=== PATIENT | female | born 1995 | race Caucasian/White ===

== ENCOUNTER 2017-11-09 09:37 | Emergency (ER) | payer OTHER ==
--- NOTE | 2017-11-09 10:06 | ED ---
Lower Extremity - HPI Summary HPI Summary: Pt. is a 22y.o female who presents emergency department for left ankle injury that occurred yesterday. Patient states she was running on a trail when she tripped over a rock and twisted her left ankle. Patient to left knee sustained as well but otherwise denies head injury. Patient states ankle pain has progressively gotten worse and she is having difficulty ambulating today and presented to the emergency department. Symptoms are mild in severity. Walking makes symptoms worse. Rest makes symptoms better. No significant past medical history. - History of Current Complaint Chief Complaint: EDExtremityLower Stated Complaint: LT ANKLE INJURY Time Seen by Provider: 11/09/17 09:54 Hx Obtained From: Patient Hx Last Menstrual Period: Apr 2015 Pain Intensity: 4 - Allergies/Home Medications Allergies/Adverse Reactions: Allergies Allergy/AdvReac Type Severity Reaction Status Date / Time codeine Allergy Nausea Verified 11/09/17 09:49 PMH/Surg Hx/FS Hx/Imm Hx Previously Healthy: Yes Psychiatric History: Denies: Hx Eating Disorder - Immunization History Date of Tetanus Vaccine: current Date of Influenza Vaccine: unknown Infectious Disease History: No Infectious Disease History: Denies: Hx Clostridium Difficile, Hx Hepatitis, Hx Human Immunodeficiency Virus (HIV), Hx of Known/Suspected MRSA, Hx Shingles, Hx Tuberculosis, Hx Known/ Suspected VRE, Hx Known/Suspected VRSA, History Other Infectious Disease, Traveled Outside the [place] in Last 30 Days - Family History Known Family History: Positive: None - Social History Occupation: Student Lives: With Family Alcohol Use: Rare Substance Use Type: Reports: None Smoking Status (MU): Never Smoked Tobacco Review of Systems Positive: Other - Left ankle injury Negative: Weakness, Paresthesia, Numbness All Other Systems Reviewed And Are Negative: Yes Physical Exam Triage Information Reviewed: Yes Vital Signs On Initial Exam: Initial Vitals Temp Pulse Resp BP Pulse Ox 98.2 F 87 16 108/58 100 11/09/17 09:46 11/09/17 09:46 11/09/17 09:46 11/09/17 09:46 11/09/17 09:46 Vital Signs Reviewed: Yes Appearance: Positive: Well-Appearing - Patient sitting in wheelchair in no acute distress. Friend present. Skin: Positive: Warm, Dry Head/Face: Positive: Normal Head/Face Inspection Eyes: Positive: Normal Neck: Positive: Supple Musculoskeletal: Positive: Other - Superficial abrasion noted to the left anterior knee. No bony tenderness to the left knee and range of motion is intact. Mild lateral malleolus pain edema noted. Achilles tendon is intact. No palpable foot pain and no pain to the base of the fifth metatarsal. Ankle appears stable. Good palpable pedal pulse. Neurological: Positive: Normal, CN Intact II-III Psychiatric: Positive: Affect/Mood Appropriate Procedures - Splinting Left Lower Extremity Hand-Made Type: orthoglass Splint: Stirrup splint Pre-Proc Neuro Vasc Exam: normal Post-Proc Neuro Vasc Exam: normal Diagnostics - Vital Signs Vital Signs Temp Pulse Resp BP Pulse Ox 11/09/17 09:46 98.2 F 87 16 108/58 100 - Laboratory Lab Statement: Any lab studies that have been ordered have been reviewed, and results considered in the medical decision making process. Lower Extremity Course/Dx - Course Course Of Treatment: Presenting for an isolated left ankle injury. Ankle x-ray showing a nondisplaced distal fibular fracture, reading per radiology. Ankle was splinted and crutches. Advised patient to call the orthopedic clinic today to schedule a follow-up appointment. To ice and elevate. Tylenol for pain as directed. Patient understands and agrees with plan. - Diagnoses Differential Diagnosis/HQI/PQRI: Positive: Fracture (Closed), Sprain, Strain Provider Diagnoses: Closed fibular fracture Discharge - Sign-Out/Discharge Documenting (check all that apply): Discharge/Admit/Transfer - Discharge Plan Condition: Good Disposition: HOME Patient Education Materials: Ankle Fracture (ED) Referrals: Rachel Moreira MD [Primary Care Provider] - Colin Hawley MD [Medical Doctor] - Additional Instructions: Call Dr. Hawley's office today to schedule an appointment Keep splint in place and use crutches Ice and elevate Tylenol for pain as directed - Billing Disposition and Condition Condition: GOOD Disposition: Home
--- NOTE | 2017-11-09 10:22 | RAD ---
INDICATION: Left ankle injury COMPARISON: None TECHNIQUE: AP, lateral, and oblique views were obtained. FINDINGS: There is nondisplaced oblique fracture of the distal fibular metadiaphysis. No other fractures are evident. The ankle mortise is intact. There is lateral soft tissue swelling. IMPRESSION: NONDISPLACED FIBULAR FRACTURE
[2017-11-09 11:27] VITALS: BP 113/70
== END 2017-11-09 11:22 | disposition home or self-care (01) ==
LOC: ED 09:37
DX: S82.402A Unspecified fracture of shaft of left fibula, initial encounter for closed fracture (principal); W18.09XA Striking against other object with subsequent fall, initial encounter; Y93.02 Activity, running; Y92.89 Other specified places as the place of occurrence of the external cause; Z88.5 Allergy status to narcotic agent
CPT/HCPCS: 29515; 99282

== ENCOUNTER 2019-08-30 13:53 | Emergency (ER) | payer OTHER ==
--- NOTE | 2019-08-30 14:30 | UC ---
Hand/Wrist HPI - HPI Summary HPI Summary: 24 y/o female presents to the urgent care c/o Left thumb pain and swelling s/p injury w/he training bike yesterday around 1200N. Pt reports her thumb got stuck in part of the bike yesterday while she was training. Pain is pain 5/10, sharp w/ movement and flexion associated w/ a bruise and mild swelling. Pt denies any numbness or tingling sensation over her left thumb or hand. Pt also c/o of Nausea and vomiting since this morning. She has had 2 episodes of vomiting. She reports she is training for a Triathlon and sometimes she experiences dehydration which starts with nausea and vomiting. She usually self treats it at home with Gatorade which she has not taken any today. She denies fever, SOB, cough, Hx of travel, [place], dizziness, chest pain, abdominal pain, diarrhea,fatigue or weakness, urinary symptoms, back pain, flank pain, myalgias or vaginal discharge. - History Of Current Complaint Stated Complaint: THUMB INJURY Time Seen by Provider: 08/30/19 14:28 Hx Obtained From: Patient Hx Last Menstrual Period: Apr 2015 ?: No Onset/Duration: Sudden Onset, Lasting Days - Yesterday around 12 N injured her left thumb w/ her training bike, Still Present Severity Initially: Moderate Severity Currently: Moderate Pain Intensity: 5 Pain Scale Used: 0-10 Numeric Character Of Pain: Sharp Aggravating Factor(s): Movement, Flexion, Pulling Alleviating Factor(s): Rest Associated Signs And Symptoms: Positive: Swelling, Bruising - at the proximal left thumb. Negative: Weakness, Numbness/Tingling Related History: Dominant Hand Right - Allergies/Home Medications Allergies/Adverse Reactions: Allergies Allergy/AdvReac Type Severity Reaction Status Date / Time codeine Allergy Nausea Verified 08/30/19 14:33 Home Medications: Home Medications Levonorgestrel (IUD) (NF) [Mirena (NF)] 1 unit VAGINAL ONCE 10/03/15 [History Confirmed 08/30/19] Ondansetron ODT TAB* [Zofran 4 MG Odt TAB*] 4 mg PO Q6H PRN #8 tab.odt 08/30/19 [Rx] PMH/Surg Hx/FS Hx/Imm Hx Previously Healthy: Yes - Pt denies PMHX - Surgical History Surgical History: None - Family History Known Family History: Positive: Diabetes - Social History Occupation: Employed Full-time Lives: With Family Alcohol Use: Rare Substance Use Type: None Smoking Status (MU): Never Smoked Tobacco - Immunization History Most Recent Influenza Vaccination: Mar 2014 Most Recent Tetanus Shot: Unsure Review of Systems All Other Systems Reviewed And Are Negative: Yes Constitutional: Positive: Negative Skin: Positive: Bruising - at the proximal left thumb Eyes: Positive: Negative ENT: Positive: Negative Respiratory: Positive: Negative Cardiovascular: Positive: Negative Gastrointestinal: Positive: Vomiting - 2 episodes today, Nausea Genitourinary: Positive: Negative Motor: Positive: Negative Neurovascular: Positive: Negative Musculoskeletal: Positive: Decreased ROM - left thumb, Other: - left thumb pain s/p injury Neurological/Mental Status: Positive: Negative Psychological: Positive: Negative Is Patient Immunocompromised?: No Physical Exam - Summary Physical Exam Summary: Vital Signs Reviewed: Yes General: Well developed well nourished female sitting in the examining table w/ o any apparent distress Eyes: Positive: Conjunctiva Clear - PERRLA, EOMI ENT: Positive: Normal ENT inspection, Hearing grossly normal, Pharynx normal, TMs normal Neck: Positive: Supple, Nontender, No Lymphadenopathy Respiratory: Positive: Chest non-tender, Lungs clear, Normal breath sounds, No respiratory distress Cardiovascular: Positive: RRR, No Murmur, Pulses Normal, Brisk Capillary Refill Abdomen Description: Positive: Nontender, No Organomegaly, Soft. Negative: CVA Tenderness (R), CVA Tenderness (L) Bowel Sounds: Positive: Present Musculoskeletal: Strength Intact, No Edema, LF Hand/Fingers: the L hand is without obvious asymmetry or deformity when compared to the R hand. mild swelling around proximal left thumb w/ mild ecchymosis and decrease ROM of the 1st PIPJ, no erythema, discrete skin avulsion which closed now about 0.3 cm in size, no obvious deformity. Normal cascade of fingers. Normal flexion and extension of fingers, except for LF thumb due to pain. FDS and FDP intact against resistance. No focal fullness, throbbing pain, swelling of finger tip. Pulses and capillary refill WNL, positive reflexes and sensation intact Neurological Exam: Normal Psychological Exam: Normal Skin Exam: Normal Triage Information Reviewed: Yes Hand/Wrist Course/Dx - Course Course Of Treatment: 24 y/o female presents to the urgent care c/o Left thumb pain and swelling s/p injury w/he training bike yesterday around 1200N. Pt reports her thumb got stuck in part of the bike yesterday while she was training. Pain is pain 5/10, sharp w/ movement and flexion associated w/ a bruise and mild swelling. Pt denies any numbness or tingling sensation over her left thumb or hand. Pt also c/o of Nausea and vomiting since this morning. She has had 2 episodes of vomiting. She reports she is training for a Triathlon and sometimes she experiences dehydration which starts with nausea and vomiting. She usually self treats it at home with Gatorade which she has not taken any today. She denies fever, SOB, cough, Hx of travel, [place], dizziness, chest pain, abdominal pain, diarrhea,fatigue or weakness, urinary symptoms, back pain, flank pain, myalgias or vaginal discharge. Hx obtained. Pt is hemodynamically stable, A&OX3 , VS: WNL. Pt's PE:WNL except for L hand is without obvious asymmetry or deformity when compared to the R hand. mild swelling around proximal left thumb w/ mild ecchymosis and decrease ROM of the 1st PIPJ, no erythema, discrete skin avulsion which closed now about 0.3 cm in size, no obvious deformity . Pt Given Zofran PO to alleviate symptoms. Pt tolerated well medication and felt better. UA: +leukoesteraces. test: negative. Pt w/ o any urinary symptoms or vaginal discharge. Urine culture sent to lab to r/o any abnormality. Pt will be notify for any further management. Pt' left thumb immobilized with a finger splint and ZAINAB bandage. Pt Rx Zofran PO to alleviate N /V. Strongly advised to increase hydration w/ Gatorade and Pedialyte PO. Pt also advised RICE take Ibuprofen PO for pain. F/u with Sports Medicine if not improvement of symptoms in 7 days for further evaluation and treatment. D/C instructions explained Pt understood and agreed with plan of care. - Differential Dx/Diagnosis Differential Diagnosis/HQI/PQRI: Abrasion, Cellulitis, Contusion, Fracture, Sprain, Strain, Tendonitis Provider Diagnosis: Injury of left thumb, Left thumb sprain, Nausea and vomiting Discharge ED - Sign-Out/Discharge Documenting (check all that apply): Patient Departure - D/C home All imaging exams completed and their final reports reviewed: Yes - Discharge Plan Condition: Stable Disposition: HOME Prescriptions: Ondansetron ODT TAB* [Zofran 4 MG Odt TAB*] 4 mg PO Q6H PRN #8 tab.odt PRN Reason: Nausea/Vomiting Patient Education Materials: Finger Sprain (ED) Referrals: Rachel Moreira MD [Primary Care Provider] - 3 Days [facility] [Provider Group] - 1 Week Additional Instructions: 1-Please take Ibuprofen PO q6-8hrs prn after meals as directed to alleviate pain and swelling. 2-Please apply ice, keep your thumb immobilized with the splint. Avoid strenuous exercise or heavy lifting 3-Please f/u with Orthopedic DR from Sports Medicine in 1 week is not improvement of symptoms for further evaluation and treatment. 4- Please increase fluid intake w/ Pedialyte or Gatorade. eat soft meals and avoid strenuous exercise and rest 5- Take Zofran PO as directed if vomiting continues 6- If you develop fever or abdominal pain w/ recurrent episodes of N/V please f/u with your PCP or return here to the urgent care for further management. - Billing Disposition and Condition Condition: STABLE Disposition: Home
[2019-08-30 14:43] VITALS: BP 116/72
[2019-08-30] MEDS ORDERED: Ondansetron ODT TAB* 4 MG PO ONE (14:51)
--- NOTE | 2019-09-01 08:31 | UC ---
- Progress Note Progress Note: Urine culture reviewed. Normal alexandre and Group B strep 1-10,000 cfu/ml. According to visit note patient was without UTI symptoms and based on this low bacterial count treatment with antibiotics is not recommended unless patient is now symptomatic. Nursing to contact patient and ensure that she is still asymptomatic. If symptomatic will begin treatment with an appropriate antibiotic otherwise she is to follow up as previously directed. Course/Dx - Diagnoses Provider Diagnoses: Injury of left thumb, Left thumb sprain, Nausea and vomiting Discharge ED - Sign-Out/Discharge Documenting (check all that apply): Post-Discharge Follow Up All imaging exams completed and their final reports reviewed: Yes - Discharge Plan Condition: Stable Disposition: HOME Prescriptions: Ondansetron ODT TAB* [Zofran 4 MG Odt TAB*] 4 mg PO Q6H PRN #8 tab.odt PRN Reason: Nausea/Vomiting Patient Education Materials: Finger Sprain (ED) Referrals: [facility] [Provider Group] - 1 Week Rachel Moreira MD [Primary Care Provider] - 3 Days Additional Instructions: 1-Please take Ibuprofen PO q6-8hrs prn after meals as directed to alleviate pain and swelling. 2-Please apply ice, keep your thumb immobilized with the splint. Avoid strenuous exercise or heavy lifting 3-Please f/u with Orthopedic DR from Sports Medicine in 1 week is not improvement of symptoms for further evaluation and treatment. 4- Please increase fluid intake w/ Pedialyte or Gatorade. eat soft meals and avoid strenuous exercise and rest 5- Take Zofran PO as directed if vomiting continues 6- If you develop fever or abdominal pain w/ recurrent episodes of N/V please f/u with your PCP or return here to the urgent care for further management. - Billing Disposition and Condition Condition: STABLE Disposition: Home
== END 2019-08-30 16:24 | disposition home or self-care (01) ==
LOC: UCEAST 13:53
DX: S63.602A Unspecified sprain of left thumb, initial encounter (principal); W23.0XXA Caught, crushed, jammed, or pinched between moving objects, initial encounter; Y93.A1 Activity, exercise machines primarily for cardiorespiratory conditioning; Y92.9 Unspecified place or not applicable; R11.2 Nausea with vomiting, unspecified; Z88.5 Allergy status to narcotic agent
CPT/HCPCS: 81003; 84702; 87077; 87086; 99212; A9270-GY; G0463